=== PATIENT | female | born 1975 | race Hispanic/Latino ===

== ENCOUNTER 2018-07-08 11:23 | Emergency (ER) | payer OTHER ==
--- NOTE | 2018-07-08 12:21 | RAD REPORT ---
EXAM DESCRIPTION: CT - Ct Stroke Brain Wo Cont - 07/08/2018 12:14 pm CLINICAL HISTORY: Weakness, dizziness, left-sided head pain, stroke-like symptoms CLINICAL HISTORY: None. TECHNIQUE: Axial 5 millimeter thick images of the head were obtained without IV contrast. All CT scans are performed using dose optimization technique as appropriate and may include automated exposure control or mA/KV adjustment according to patient size. FINDINGS: No intracranial hemorrhage, mass, or cerebral edema. No acute infarction identifiable. No extra-axial fluid collections. Pizarro matter-white matter differentiation is preserved. Visualized portions of the mastoid air cells, paranasal sinuses, and orbits are unremarkable. Findings telephoned to the referring condition 12:19 p.m. IMPRESSION: No CT evidence of acute intracranial process.
--- NOTE | 2018-07-08 12:37 | RAD REPORT ---
EXAM DESCRIPTION: RAD - Chest Single View - 07/08/2018 12:26 pm CLINICAL HISTORY: Slurred speech, Stroke protocol chest film COMPARISON: None. TECHNIQUE: AP portable chest image was obtained 1225 hours . FINDINGS: Lungs are clear. Heart and vasculature are normal. No measurable pleural effusion and no p neumothorax. No acute bony abnormality seen. No acute aortic finding. Calcified left breast implant c apsule noted. IMPRESSION: No acute cardiopulmonary process.
[2018-07-08 12:42] LABS: Absolute Lymphocytes (CBC) 1.7 K/uL (0.7-4.9); Absolute Monocytes 0.4 K/uL (0.1-1.3); Absolute Neutrophil 10.9 K/uL (1.8-8.0); Basophils % 0.6 % (0-1.3); Eosinophils % 0.6 % (0-4.4); Hematocrit 40.7 % (36.0-45.0); Lymphocytes % 12.8 % (15.3-44.8); MPV 7.9 fL (7.6-11.3); Monocytes % 3.3 % (3.3-12.3); RBC Red Blood Cell Count 4.82 M/uL (3.86-4.86)
[2018-07-08 12:45] LABS: Protime INR 0.93
[2018-07-08 12:58] LABS: Amylase Level 41 U/L (25-115); BUN Blood Urea Nitrogen 11 mg/dL (7-18); Bicarbonate 24 mmol/L (21-32); CKMB Creatine Kinase MB 1.1 ng/mL (0.3-3.6); Creatine Phosphokinase 88 U/L (26-192); Glucose Level 149 mg/dL (74-106); Lipase 131 U/L (73-393); Magnesium 1.8 mg/dL (1.8-2.4); Potassium 3.2 mmol/L (3.5-5.1); Sodium Level 141 mmol/L (136-145)
--- NOTE | 2018-07-08 13:09 | ER ---
Nurse's Notes [facility] Name: Cyndee Hyatt Age: 42 yrs Sex: Female : 1975 Arrival Date: 07/08/2018 Time: 11:24 Bed 13 Private MD: Unknown, Unknown Diagnosis: Ataxic gait Presentation: 07/08 11:30 Presenting complaint: Patient states: dizziness, left side of head pain, n/v started sv today. Denies diarrhea. Transition of care: patient was not received from another setting of care. Onset of symptoms was July 08, 2018. Care prior to arrival: None. 11:30 Method Of Arrival: Wheelchair sv 11:30 Acuity: SWEETIE 3 sv 12:03 Risk Assessment: Do you want to hurt yourself or someone else? Patient reports no ss desire to harm self or others. Initial Sepsis Screen: Does the patient meet any 2 criteria? No. Patient's initial sepsis screen is negative. Does the patient have a suspected source of infection? No. Patient's initial sepsis screen is negative. 12:03 Acuity: SWEETIE 2 ss Historical: - Allergies: 11:31 No Known Allergies; sv - PMHx: 11:31 None; sv - PSHx: 11:31 None; sv - Immunization history:: Adult Immunizations unknown. - Social history:: Smoking status: Patient/guardian denies using tobacco, Patient/guardian denies using alcohol, street drugs, The patient lives with family. - Ebola Screening: : No symptoms or risks identified at this time. - Family history:: not pertinent. Screenin:14 Abuse screen: Denies threats or abuse. Denies injuries from another. Nutritional ss screening: No deficits noted. Tuberculosis screening: Never had TB. VAN Screening: Arm Drift: Patient shows no arm weakness. Visual Disturbance: No visual disturbance noted. Aphasia: No aphasia noted. Neglect: No neglect noted. Fall Risk None identified. 13:10 Patient has been NPO before screening. The patient is alert, able to follow commands. ph The patient does not exhibit slurred or garbled speech The patient is not exhibiting difficulty speaking. The patient does not exhibit difficulty understanding words. The patient is able to swallow own secretions with no drooling or need for suction. Patient tolerated one teaspoon of water. No drooling, immediate coughing, gurgling, or clearing of the throat was noted. The patient tolerated 90mL of water. No drooling, immediate coughing, gurgling, or clearing of the throat was noted. The patient passed the bedside swallow screening. Oral medications may be given as ordered. Contact Physician for further diet orders. Provider notified of bedside swallow screening results: Anna Garrison MD. Assessment: 12:04 Reassessment: When starting patient's IV, pt reports that her symptoms began at 0800 ss today that included "funny sensation" to L eyelid and L side of lips. E M Assembler equal. Pt also c/o L sided headache, and heavy speech since 0800. 12:04 General: Appears uncomfortable. Pain: Complains of pain in L sided headache. Neuro: ss Level of Consciousness is awake, alert, obeys commands. Neuro: Reports headache in left. Neuro: Reports pt reports that the L side of her eye feels different as well as the L side of her mouth as well as heavy speech, all beginning at 0800 today. Family reports that while walking patient seemed to be leaning to her Left side. . Respiratory: Airway is patent Respiratory effort is even, unlabored, Respiratory pattern is regular, symmetrical. Derm: Skin is intact, is healthy with good turgor, Skin is pink, warm \\T\\ dry. normal. Musculoskeletal: Circulation, motion, and sensation intact. Range of motion: intact in all extremities. 12:35 Reassessment: Dr Garrison at bedside to assess pt. ph 13:15 Reassessment: Patient appears in no apparent distress at this time. Patient and/or ph family updated on plan of care and expected duration. Pain level reassessed. Patient is alert, oriented x 3, equal unlabored respirations, skin warm/dry/pink. Pt reports that numbness to L side of face and speech problem has improved, rates headache 4/10, and c/o nausea, ERP notified, see MAR. 14:03 Reassessment: Patient appears in no apparent distress at this time. Patient and/or ph family updated on plan of care and expected duration. Pain level reassessed. Patient is alert, oriented x 3, equal unlabored respirations, skin warm/dry/pink. Report called to Tere DIAZ at [facility]. 14:50 Reassessment: Patient appears in no apparent distress at this time. Patient and/or ph family updated on plan of care and expected duration. Pain level reassessed. Patient is alert, oriented x 3, equal unlabored respirations, skin warm/dry/pink. Pt reports that headache has improved to 1/10, also reports that nausea has improved, [facility] at bedside, report given to EMT, pt transferred to [facility] in [facility]. Vital Signs: 11:31 BP 140 / 91; Pulse 64; Resp 16; Temp 97; Pulse Ox 100% ; Weight 58.06 kg; Height 5 ft. sv 1 in. (154.94 cm); 13:23 BP 128 / 97; Pulse 84; Resp 18; Pulse Ox 100% on R/A; ph 13:51 BP 120 / 79; Pulse 72; Resp 18; Temp 97.4; Pulse Ox 100% on R/A; ph 14:30 BP 118 / 72; Pulse 76; Resp 16; Temp 97.5; Pulse Ox 100% on R/A; ph 11:31 Body Mass Index 24.19 (58.06 kg, 154.94 cm) sv NIH Stroke Scale Scores: 12:14 NIHSS Score: 1 ss ED Course: 11:24 Patient arrived in ED. ag5 11:25 Unknown, Unknown is Private Physician. ag5 11:31 Triage completed. sv 11:32 Arm band placed on. sv 11:33 Trisha Berry, RN is Primary Nurse. ph 11:39 Anna Garrison MD is Attending Physician. ma2 12:03 Inserted saline lock: 22 gauge in right antecubital area, using aseptic technique. ss Blood collected. 12:16 CT Stroke Brain w/o Contrast In Process Unspecified. EDMS 12:26 Stroke CXR 1 View In Process Unspecified. EDMS 12:43 Patient has correct armband on for positive identification. Placed in gown. Bed in low ph position. Call light in reach. Side rails up X 1. pilot teacher on. Pulse ox on. NIBP on. Door closed. Noise minimized. Warm blanket given. 12:48 EKG done, by ED staff, reviewed by Anna Garrison MD. mh5 14:50 No provider procedures requiring assistance completed. Patient transferred, IV remains ph in place. Administered Medications: 13:15 Drug: NS 0.9% 1000 ml Route: IV; Rate: 1 bolus; Site: right antecubital; ph 14:30 Follow up: Response: No adverse reaction; IV Status: Completed infusion; IV Intake: ph 1000ml 13:15 Drug: Reglan 20 mg {Note: mixed in 100 cc NS.} Route: IVP; Site: right antecubital; ph 14:00 Follow up: Response: No adverse reaction ph 13:15 Drug: Benadryl 50 mg Route: IVP; Site: right antecubital; ph 14:00 Follow up: Response: No adverse reaction ph 13:18 Drug: Aspirin 325 mg Route: PO; ph 14:00 Follow up: Response: No adverse reaction ph 13:21 Drug: Zofran 4 mg Route: IVP; Site: right antecubital; ph 14:00 Follow up: Response: No adverse reaction; Nausea is decreased ph Intake: 14:30 IV: 1000ml; Total: 1000ml. ph Outcome: 13:08 ER care complete, transfer ordered by MD. couch 14:54 Patient left the ED. ph 14:54 Transferred by [facility]. to [facility], Transfer form ph completed. X-rays sent w/ patient. 14:54 Condition: stable 14:54 Instructed on the need for transfer. NIH Stroke Scale - NIH Stroke Score Date: 07/08/2018 Time: 12:14 Total Score = 1 1a. Level of Consciousness (LOC) - 0(Alert) 1b. Level of Consciousness (LOC) (Year \\T\\ Age) - 0(Both) 1c. LOC Commands (Open \\T\\ Closes Eyes/Floatlight Loading Supervisor) - 0(Both) 2. Best Gaze (Lateral Gaze Paresis) - 0(Normal) 3. Visual Field Loss - 0(No visual loss) 4. Facial Palsy - 0(Normal) 5a. Left Arm: Motor (10-second hold) - 0(No drift) 5b. Right Arm: Motor (10-second hold) - 0(No drift) 6a. Left Leg: Motor (5-second hold - always test supine) - 0(No drift) 6b. Right Leg: Motor (5-second hold - always test supine) - 0(No drift) 7. Limb Ataxia (finger/nose \\T\\ heel/rodrigues - test with eyes open) - 0(Absent) 8. Sensory Loss (pinprick arms/legs/face) - 0(Normal) 9. Best Language: Aphasia (description/naming/reading) - 1(Mild to moderate aphasia) 10. Dysarthria (speech clarity - read or repeat words) - 0(Normal) 11. Extinction and Inattention (visual/tactile/auditory/spatial/personal) - 0(No abnormality) Initials: Signatures: Dispatcher [employer] Claire Taylor RN RN sv Smirch, Shelby, RN RN ss Hall, Patricia, RN RN Edmar, Renee 5 Anna Garrison MD MD ma2 Gladys, Maday 5
--- NOTE | 2018-07-08 13:09 | EDPHYS ---
Physician Documentation [facility] Name: Cyndee Hyatt Age: 42 yrs Sex: Female : 1975 Arrival Date: 07/08/2018 Time: 11:24 Bed 13 Private MD: Unknown, Unknown ED Physician Anna Garrison HPI: 07/08 13:04 This 42 yrs old Female presents to ER via Wheelchair with complaints of ma2 Nausea/Vomiting, Dizziness. 13:04 The patient presents to the emergency department with nausea, vomiting. Onset: The ma2 symptoms/episode began/occurred gradually, 5 hour(s) ago. The symptoms are alleviated by supine position, OTC meds. Severity of symptoms: At their worst the symptoms were moderate in the emergency department the symptoms have improved. The patient has not experienced similar symptoms in the past. here with left facial droop and left balance disturbance x 5 hrs symptoms are improving . Historical: - Allergies: 11: No Known Allergies; sv - PMHx: : None; sv - PSHx: 11: None; sv - Immunization history:: Adult Immunizations unknown. - Social history:: Smoking status: Patient/guardian denies using tobacco, Patient/guardian denies using alcohol, street drugs, The patient lives with family. - Ebola Screening: : No symptoms or risks identified at this time. - Family history:: not pertinent. ROS: 13:04 Constitutional: Negative for fever, chills, and weight loss, Cardiovascular: Negative ma2 for chest pain, palpitations, and edema, Respiratory: Negative for shortness of breath, cough, wheezing, and pleuritic chest pain, Abdomen/GI: Negative for abdominal pain, nausea, diarrhea, and constipation, Back: Negative for injury and pain. 13:04 Neuro: Positive for gait disturbance, Negative for loss of consciousness, seizure activity, near syncope, tremor, weakness. 13:04 All other systems are negative. Exam: 13:04 Constitutional: This is a well developed, well nourished patient who is awake, alert, ma2 and in no acute distress. Eyes: Pupils equal round and reactive to light, extra-ocular motions intact. Lids and lashes normal. Conjunctiva and sclera are non-icteric and not injected. Cornea within normal limits. Periorbital areas with no swelling, redness, or edema. ENT: Nares patent. No nasal discharge, no septal abnormalities noted. Tympanic membranes are normal and external auditory canals are clear. Oropharynx with no redness, swelling, or masses, exudates, or evidence of obstruction, uvula midline. Mucous membranes moist. Chest/axilla: Normal chest wall appearance and motion. Nontender with no deformity. No lesions are appreciated. Cardiovascular: Regular rate and rhythm with a normal S1 and S2. No gallops, murmurs, or rubs. Normal PMI, no JVD. No pulse deficits. Respiratory: Lungs have equal breath sounds bilaterally, clear to auscultation and percussion. No rales, rhonchi or wheezes noted. No increased work of breathing, no retractions or nasal flaring. Abdomen/GI: Soft, non-tender, with normal bowel sounds. No distension or tympany. No guarding or rebound. No evidence of tenderness throughout. Skin: Warm, dry with normal turgor. Normal color with no rashes, no lesions, and no evidence of cellulitis. MS/ Extremity: Pulses equal, no cyanosis. Neurovascular intact. Full, normal range of motion. 13:04 Neuro: Orientation: is normal, Mentation: is normal, Memory: is normal, Cranial nerves: normal except left facial droop and decrease sensation spares forehead , Speech is dysarthric, hoarse, slurred, Cerebellar function: dysmetria is noted on the left, Motor: is normal, Sensation: is normal, Gait: is unsteady, ataxic. Vital Signs: 11:31 BP 140 / 91; Pulse 64; Resp 16; Temp 97; Pulse Ox 100% ; Weight 58.06 kg; Height 5 ft. sv 1 in. (154.94 cm); 13:23 BP 128 / 97; Pulse 84; Resp 18; Pulse Ox 100% on R/A; ph 13:51 BP 120 / 79; Pulse 72; Resp 18; Temp 97.4; Pulse Ox 100% on R/A; ph 14:30 BP 118 / 72; Pulse 76; Resp 16; Temp 97.5; Pulse Ox 100% on R/A; ph 11:31 Body Mass Index 24.19 (58.06 kg, 154.94 cm) sv NIH Stroke Scale Scores: 12:14 NIHSS Score: 1 ss MDM: 11:39 Patient medically screened. ma2 13:04 Differential diagnosis: possible stroke, not tPA candidate as symptoms are rapidly ma2 improving, will transfer for higher level of care as no neurology oncall available today in our hospital, accepted by dr. Cabrera at [facility]. 13:04 Data reviewed: vital signs, nurses notes. Counseling: I had a detailed discussion with ma2 the patient and/or guardian regarding: the historical points, exam findings, and any diagnostic results supporting the discharge/admit diagnosis, the presence of at least one elevated blood pressure reading (>120/80) during this emergency department visit, the need to transfer to another facility. Response to treatment: the patient's symptoms have markedly improved after treatment. 13:08 Patient medically screened. ma2 13:11 ED course: accepted [facility]. [facility] 07/08 12:13 Order name: Magnesium; Complete Time: 13:10 [facility] 07/08 12:13 Order name: Amylase, Serum; Complete Time: 13:10 [facility] 07/08 12:13 Order name: CPK; Complete Time: 13:10 [facility] 07/08 12:13 Order name: Ckmb; Complete Time: 13:10 [facility] 07/08 12:13 Order name: Lipase; Complete Time: 13:10 [facility] 07/08 12:13 Order name: Basic Metabolic Panel; Complete Time: 13:10 [facility] 07/08 12:03 Order name: CT Stroke Brain w/o Contrast; Complete Time: 13:10 07/08 12:13 Order name: CBC with Diff; Complete Time: 13:10 [facility] 07/08 12:13 Order name: Protime (+inr); Complete Time: 13:10 [facility] 07/08 12:13 Order name: Ptt, Activated; Complete Time: 13:10 [facility] 07/08 12:13 Order name: Stroke CXR 1 View; Complete Time: 13:10 [facility] 07/08 12:13 Order name: EKG; Complete Time: 12:15 [facility] 07/08 12:13 Order name: Accucheck; Complete Time: 12:44 [facility] 07/08 12:13 Order name: Cardiac monitoring; Complete Time: 12:44 [facility] 07/08 12:13 Order name: EKG - Nurse/Tech; Complete Time: 12:43 ia07/08 12:13 Order name: IV Saline Lock; Complete Time: 12:43 ia2 07/08 12:13 Order name: Labs collected and sent; Complete Time: 12:43 ia2 07/08 12:13 Order name: NPO; Complete Time: 12:43 [facility] 07/08 12:13 Order name: O2 Per Protocol; Complete Time: 12:43 ia2 07/08 12:13 Order name: O2 Sat Monitoring; Complete Time: 12:43 [facility] 07/08 12:13 Order name: Stroke Swallow Screen; Complete Time: 13:22 ma2 Administered Medications: 13:15 Drug: NS 0.9% 1000 ml Route: IV; Rate: 1 bolus; Site: right antecubital; ph 14:30 Follow up: Response: No adverse reaction; IV Status: Completed infusion; IV Intake: ph 1000ml 13:15 Drug: Reglan 20 mg {Note: mixed in 100 cc NS.} Route: IVP; Site: right antecubital; ph 14:00 Follow up: Response: No adverse reaction ph 13:15 Drug: Benadryl 50 mg Route: IVP; Site: right antecubital; ph 14:00 Follow up: Response: No adverse reaction ph 13:18 Drug: Aspirin 325 mg Route: PO; ph 14:00 Follow up: Response: No adverse reaction ph 13:21 Drug: Zofran 4 mg Route: IVP; Site: right antecubital; ph 14:00 Follow up: Response: No adverse reaction; Nausea is decreased ph Disposition: 07/08/18 13:08 Transfer ordered to [facility]. Diagnosis is Ataxic gait. - Reason for transfer: Higher level of care. - Accepting physician is Drs. Omalley and Daniella. - Condition is Stable. - Problem is new. - Symptoms have improved. NIH Stroke Scale - NIH Stroke Score Date: 07/08/2018 Time: 12:14 Total Score = 1 1a. Level of Consciousness (LOC) - 0(Alert) 1b. Level of Consciousness (LOC) (Year \T\ Age) - 0(Both) 1c. LOC Commands (Open \T\ Closes Eyes/Beater Lead) - 0(Both) 2. Best Gaze (Lateral Gaze Paresis) - 0(Normal) 3. Visual Field Loss - 0(No visual loss) 4. Facial Palsy - 0(Normal) 5a. Left Arm: Motor (10-second hold) - 0(No drift) 5b. Right Arm: Motor (10-second hold) - 0(No drift) 6a. Left Leg: Motor (5-second hold - always test supine) - 0(No drift) 6b. Right Leg: Motor (5-second hold - always test supine) - 0(No drift) 7. Limb Ataxia (finger/nose \T\ heel/rodrigues - test with eyes open) - 0(Absent) 8. Sensory Loss (pinprick arms/legs/face) - 0(Normal) 9. Best Language: Aphasia (description/naming/reading) - 1(Mild to moderate aphasia) 10. Dysarthria (speech clarity - read or repeat words) - 0(Normal) 11. Extinction and Inattention (visual/tactile/auditory/spatial/personal) - 0(No abnormality) Initials: ss Signatures: Dispatcher [employer] EDClaire Turner RN RN Trisha Berry RN RN Anna Garrison MD MD ma2 Corrections: (The following items were deleted from the chart) 13:12 13:08 07/08/2018 13:08 Transfer ordered to [facility]. ma2 Diagnosis is Ataxic gait. Reason for transfer: Higher level of care. Accepting physician is Shahram. Condition is Stable. Problem is new. Symptoms have improved. ma2 14:54 13:12 07/08/2018 13:08 Transfer ordered to [facility]. ph Diagnosis is Ataxic gait. Reason for transfer: Higher level of care. Accepting physician is Drs. Omalley and Daniella. Condition is Stable. Problem is new. Symptoms have improved. ma2
[2018-07-08] MEDS ORDERED: ASPIRIN 81 MG CHEWABLE TABLET ONE (13:11)
[2018-07-08] MEDS ORDERED: DIPHENHYDRAMINE 50 MG/ML VIAL ONE (13:11)
[2018-07-08] MEDS ORDERED: NA CHLORIDE 0.9% 100 ML IV ONE (13:11)
[2018-07-08] MEDS ORDERED: NA CHLORIDE 0.9% 1,000 ML ONE (13:11)
[2018-07-08] MEDS ORDERED: METOCLOPRAMIDE 10 MG/2mL INJ ONE (13:11)
[2018-07-08] MEDS ORDERED: ONDANSETRON 4 MG/2 ML VIAL ONE (13:31)
--- NOTE | 2018-07-09 07:59 | EKG ---
Test Date: 2018-07-08 Test Time: 12:42:45 Machine Hostler: MICKEY MEASUREMENT RESULTS: Intervals: Rate: 77 IA: 138 QRSD: 84 QT: 436 QTc: 493 Mobile: P: 72 IA: 138 QRS: 44 T: 66 INTERPRETIVE STATEMENTS: Normal sinus rhythm with sinus arrhythmia T wave abnormality, consider anterior ischemia Prolonged QT Abnormal ECG No previous ECG available for comparison Electronically Signed On 07-09-18 07:57:18 CDT by Josh Combs
== END 2018-07-08 14:54 | disposition short-term general hospital (02) ==
LOC: ER 11:23
DX: R26.0 Ataxic gait (principal)
CPT/HCPCS: 36415; 70450; 71045; 80048; 82150; 82550; 82553; 83690; 83735; 85025; 85610; 85730; 93005; 96361; 96374; 96375; 99285; J2405; J2765; J7030